=== PATIENT | female | born 1990 | race Caucasian/White ===

== ENCOUNTER 2018-05-24 18:37 | Emergency (ER) | payer OTHER ==
[~2018-05-24] VITALS: Ht 162.6 cm; Wt 65.0 kg
[~2018-05-24 18:37] MED LIST: BCP PA; PROBCAP14 PO
[2018-05-24] MEDS ORDERED: AUGM875T28 PO (19:51)
[2018-05-24 20:00] VITALS: BP 127/78
[2018-05-24] MEDS ORDERED: AUGMENTIN 875 MG TAB PO ONE (20:00)
== END 2018-05-24 20:01 | disposition home or self-care (01) ==
LOC: M ED 18:37
DX: S61.452A Open bite of left hand, initial encounter (principal); W54.0XXA Bitten by dog, initial encounter; Y92.89 Other specified places as the place of occurrence of the external cause; Y93.89 Activity, other specified; Y99.9 Unspecified external cause status; Z79.3 Long term (current) use of hormonal contraceptives; Z79.899 Other long term (current) drug therapy; Z88.5 Allergy status to narcotic agent

== ENCOUNTER 2018-06-19 18:36 | Emergency (ER) | payer OTHER ==
[~2018-06-19] VITALS: Ht 162.6 cm; Wt 68.8 kg
[~2018-06-19 18:36] MED LIST changes: +AUGM875T28 PO
[2018-06-19 18:37] VITALS: BP 131/82
[2018-06-19] MEDS ORDERED: IBUP1TAB7 PO (18:42)
[2018-06-19] MEDS ORDERED: YAZ1TAB PO (18:43)
[2018-06-19] MEDS ORDERED: NEOM1SOL13 OTIC (19:00)
[2018-06-19] MEDS ORDERED: PENI500T PO (19:00)
[2018-06-19] MEDS ORDERED: IBUP-1022 PO (19:00)
== END 2018-06-19 19:13 | disposition home or self-care (01) ==
LOC: M ED 18:36
DX: H60.92 Unspecified otitis externa, left ear (principal); J02.9 Acute pharyngitis, unspecified; Z88.5 Allergy status to narcotic agent; Z79.3 Long term (current) use of hormonal contraceptives; Z79.899 Other long term (current) drug therapy